=== PATIENT | male | born 1935 | race African-American/Black ===

== ENCOUNTER 2022-02-19 14:03 | Inpatient (IN) | payer OTHER ==
[~2022-02-19] VITALS: Ht 193 cm; Wt 79.2 kg
[2022-02-19 14:54] LABS: Basophils # (auto) 0 10 ^3/uL (0-0.2); Basophils % (auto) 0.9 % (0.0-2.0); Eosinophils # (auto) 0.1 10 ^3/uL (0-0.8); Hematocrit 40.1 % (41.0-53.0); Hemoglobin 13.9 g/dL (13.5-17.5); Lymphocytes # (auto) 1.2 10 ^3/uL (0.4-5.4); Lymphocytes % (auto) 29.8 % (10.0-50.0); Mean Corpuscular Hemoglobin 32.2 pg (28.0-32.0); Mean Corpuscular Hgb Conc. 34.7 g/dL (32.0-36.0); Mean Corpuscular Volume 92.6 fL (80.0-100.0); Monocytes # (auto) 0.3 10 ^3/uL (0-1.3); Neutrophils # (auto) 2.5 10 ^3/uL (1.6-8.6); Neutrophils % (auto) 60.3 % (37.0-80.0); Nucleated Red Blood Cells % 0.1 %; Red Blood Cells 4.34 10^6/uL (4.5-5.90); Red Cell Distribution Width 13.6 % (11.8-14.3); White Blood Cell 4.1 10^3/uL (4.4-10.8)
[2022-02-19 15:09] LABS: Albumin 3.2 g/dL (3.4-5.0); Calcium 8.9 mg/dL (8.5-10.1); Potassium 3.9 mmol/L (3.5-5.1)
[2022-02-19 15:12] LABS: BUN/Creatinine Ratio 8.1; Bilirubin, Total 0.7 mg/dL (0.2-1.0); Total Protein 7.2 g/dL (6.4-8.2)
[2022-02-19 15:15] LABS: INR 1.61 (0.9-1.15); Partial Thromboplastin Time 40.4 sec (23.6-33.0)
[2022-02-19] MEDS ORDERED: NITROGLYCERIN 0.4 MG SL TAB SL PRN (18:30)
[2022-02-19] MEDS ORDERED: MORPHINE SULFATE INJ 2 MG/ml SYRG IV PRN (18:30)
[2022-02-19] MEDS ORDERED: LABETALOL HCL 5 MG/ML ML 20ML VIAL IV PRN (19:15)
[2022-02-19] MEDS ORDERED: ONDANSETRON HCL 4 MG/2 ML VIAL IV PRN (19:15)
[2022-02-19] MEDS ORDERED: LACTULOSE 20Gm/30ML SOLN PO PRN ×2 (19:15)
[2022-02-19] MEDS ORDERED: ACETAMINOPHEN 500 MG TAB PO PRN (19:15)
[2022-02-19 21:34] LABS: Urine Bacteria FEW /hpf (None Seen); Urine Blood Negative /uL (Negative); Urine Mucus FEW (None Seen); Urine Specific Gravity 1.021 (1.001-1.035); Urine WBC 3 /hpf (0 - 3)
[2022-02-19] MEDS: SODIUM CHLORIDE 0.9% 1,000 ML IV SCH (21:42)
[2022-02-19] MEDS: CARVEDILOL 3.125 MG TAB PO SCH (23:33)
[2022-02-20] VITALS (16 sets, daily range): BP systolic 100–135; BP diastolic 65–93
[2022-02-20] MEDS: ATORVASTATIN 20 MG TAB PO SCH ×2 (00:41→22:01)
[2022-02-20] MEDS: ENOXAPARIN SOD 80 MG/0.8ML SYRINGE SC SCH ×3 (00:41→22:00)
[2022-02-20 05:57] LABS: Basophils # (auto) 0.1 10 ^3/uL (0-0.2); Basophils % (auto) 1.1 % (0.0-2.0); Eosinophils # (auto) 0.1 10 ^3/uL (0-0.8); Eosinophils % (auto) 2.6 % (0.0-7.0); Hematocrit 41.5 % (41.0-53.0); Hemoglobin 14.3 g/dL (13.5-17.5); Lymphocytes # (auto) 1.4 10 ^3/uL (0.4-5.4); Lymphocytes % (auto) 27.6 % (10.0-50.0); Mean Corpuscular Hemoglobin 32.2 pg (28.0-32.0); Mean Corpuscular Hgb Conc. 34.5 g/dL (32.0-36.0); Mean Corpuscular Volume 93.1 fL (80.0-100.0); Monocytes # (auto) 0.4 10 ^3/uL (0-1.3); Monocytes % (auto) 7.8 % (0.0-12.0); Neutrophils # (auto) 3.1 10 ^3/uL (1.6-8.6); Neutrophils % (auto) 60.9 % (37.0-80.0); Nucleated Red Blood Cells % 0.1 %; Red Blood Cells 4.46 10^6/uL (4.5-5.90); Red Cell Distribution Width 13.5 % (11.8-14.3); White Blood Cell 5.1 10^3/uL (4.4-10.8)
[2022-02-20 06:08] LABS: INR 1.59 (0.9-1.15); Partial Thromboplastin Time 48.9 sec (23.6-33.0)
[2022-02-20 06:09] LABS: Potassium 4.4 mmol/L (3.5-5.1)
[2022-02-20 06:22] LABS: Albumin 3.1 g/dL (3.4-5.0); BUN/Creatinine Ratio 10.7; Bilirubin, Total 0.8 mg/dL (0.2-1.0); Calcium 9.3 mg/dL (8.5-10.1)
[2022-02-20] MEDS: SODIUM CHLORIDE 0.9% 1,000 ML IV SCH (08:00)
[2022-02-20] MEDS ORDERED: NITROGLYCERIN 0.2MG/HR TOPICAL PATCH TD SCH (10:00)
[2022-02-20] MEDS: CARVEDILOL 3.125 MG TAB PO SCH ×2 (10:30→22:00)
[2022-02-20] MEDS ORDERED: ALBUTEROL SULF 2.5 MG/0.5ML(0.5%) NEB SOLN NEB PRN (12:30)
[2022-02-20] MEDS: ASPirin 81 mg TAB PO SCH (13:00)
[2022-02-20] MEDS: ALBUTEROL SULF 2.5 MG/0.5ML(0.5%) NEB SOLN NEB SCH (19:01)
[2022-02-20] MEDS: IPRATROPIUM BROM 0.5 MG/2.5ML INH SOL NEB SCH (19:01)
[2022-02-21] VITALS (14 sets, daily range): BP systolic 96–130; BP diastolic 61–80
[2022-02-21] MEDS: ALBUTEROL SULF 2.5 MG/0.5ML(0.5%) NEB SOLN NEB SCH ×4 (00:45→19:42)
[2022-02-21] MEDS: IPRATROPIUM BROM 0.5 MG/2.5ML INH SOL NEB SCH ×4 (00:46→19:42)
[2022-02-21] MEDS: CARVEDILOL 3.125 MG TAB PO SCH ×2 (10:00→21:48)
[2022-02-21] MEDS: ENOXAPARIN SOD 80 MG/0.8ML SYRINGE SC SCH ×2 (10:00→21:49)
[2022-02-21] MEDS ORDERED: AZITHROMYCIN 500MG/ 250ML 250 ML IV SCH (10:00)
[2022-02-21] MEDS: cefTRIAXone 1GM/50ML D5W 50 ML IV SCH (10:14)
[2022-02-21] MEDS: ASPirin 81 mg TAB PO SCH (10:14)
[2022-02-21] MEDS: ATORVASTATIN 20 MG TAB PO SCH (22:16)
[2022-02-22] VITALS (8 sets, daily range): BP systolic 111–143; BP diastolic 59–99
[2022-02-22] MEDS: ALBUTEROL SULF 2.5 MG/0.5ML(0.5%) NEB SOLN NEB SCH ×4 (00:14→18:53)
[2022-02-22] MEDS: IPRATROPIUM BROM 0.5 MG/2.5ML INH SOL NEB SCH ×4 (00:14→18:53)
[2022-02-22 03:06] LABS: Basophils # (auto) 0.1 10 ^3/uL (0-0.2); Basophils % (auto) 2.1 % (0.0-2.0); Eosinophils # (auto) 0.2 10 ^3/uL (0-0.8); Eosinophils % (auto) 4.9 % (0.0-7.0); Hematocrit 40.3 % (41.0-53.0); Hemoglobin 13.7 g/dL (13.5-17.5); Lymphocytes # (auto) 1.4 10 ^3/uL (0.4-5.4); Lymphocytes % (auto) 29.5 % (10.0-50.0); Mean Corpuscular Hemoglobin 31.5 pg (28.0-32.0); Mean Corpuscular Volume 92.6 fL (80.0-100.0); Monocytes # (auto) 0.4 10 ^3/uL (0-1.3); Monocytes % (auto) 7.9 % (0.0-12.0); Neutrophils # (auto) 2.6 10 ^3/uL (1.6-8.6); Neutrophils % (auto) 55.6 % (37.0-80.0); Nucleated Red Blood Cells % 0.2 %; Red Blood Cells 4.36 10^6/uL (4.5-5.90); Red Cell Distribution Width 13.5 % (11.8-14.3); White Blood Cell 4.7 10^3/uL (4.4-10.8)
[2022-02-22 03:24] LABS: BUN/Creatinine Ratio 10.9; Calcium 8.7 mg/dL (8.5-10.1); Potassium 3.7 mmol/L (3.5-5.1)
[2022-02-22 03:27] LABS: Bilirubin, Total 0.6 mg/dL (0.2-1.0); Total Protein 6.6 g/dL (6.4-8.2)
[2022-02-22 09:09] LABS: INR 1.42 (0.9-1.15)
[2022-02-22] MEDS: cefTRIAXone 1GM/50ML D5W 50 ML IV SCH (09:13)
[2022-02-22] MEDS: ASPirin 81 mg TAB PO SCH (10:00)
[2022-02-22] MEDS: ENOXAPARIN SOD 80 MG/0.8ML SYRINGE SC SCH ×2 (10:00→21:54)
[2022-02-22] MEDS: CARVEDILOL 3.125 MG TAB PO SCH ×2 (10:00→21:54)
[2022-02-22] MEDS ORDERED: LIDOCAINE 2%HCL (LOCAL ANESTH.) INJ 10ml MDV ONE (16:28)
[2022-02-22] MEDS ORDERED: fentaNYL CITRATE 100 MCG/2 ML VL ONE (16:32)
[2022-02-22] MEDS ORDERED: ANGIOMAX 250 MG VIAL IV ONE (16:32)
[2022-02-22] MEDS ORDERED: SODIUM CHL 0.9% 0 ML ONE (16:32)
[2022-02-22] MEDS ORDERED: MIDAZOLAM HCL 2MG/2ML 2ml VIAL (1mg/ml) ONE (16:32)
[2022-02-22] MEDS ORDERED: IOHEXOL 350 MG/ML 100ML IJ ONE (16:33)
[2022-02-22] MEDS: ATORVASTATIN 20 MG TAB PO SCH (21:53)
[2022-02-23] VITALS (16 sets, daily range): BP systolic 102–134; BP diastolic 63–87
[2022-02-23 04:45] LABS: Basophils # (auto) 0.1 10 ^3/uL (0-0.2); Basophils % (auto) 1.2 % (0.0-2.0); Eosinophils # (auto) 0.3 10 ^3/uL (0-0.8); Hematocrit 40.2 % (41.0-53.0); Hemoglobin 13.7 g/dL (13.5-17.5); Lymphocytes # (auto) 1.2 10 ^3/uL (0.4-5.4); Lymphocytes % (auto) 28.9 % (10.0-50.0); Mean Corpuscular Hemoglobin 31.4 pg (28.0-32.0); Mean Corpuscular Volume 92.2 fL (80.0-100.0); Monocytes # (auto) 0.4 10 ^3/uL (0-1.3); Monocytes % (auto) 8.9 % (0.0-12.0); Neutrophils # (auto) 2.3 10 ^3/uL (1.6-8.6); Nucleated Red Blood Cells % 0.2 %; Red Blood Cells 4.36 10^6/uL (4.5-5.90); Red Cell Distribution Width 13.8 % (11.8-14.3); White Blood Cell 4.3 10^3/uL (4.4-10.8)
[2022-02-23 05:04] LABS: BUN/Creatinine Ratio 10.5; Calcium 8.7 mg/dL (8.5-10.1); Magnesium 2.1 mg/dL (1.6-2.6); Potassium 3.9 mmol/L (3.5-5.1)
[2022-02-23] MEDS: ALBUTEROL SULF 2.5 MG/0.5ML(0.5%) NEB SOLN NEB SCH ×5 (06:32→18:17)
[2022-02-23] MEDS: IPRATROPIUM BROM 0.5 MG/2.5ML INH SOL NEB SCH ×5 (06:32→18:17)
[2022-02-23] MEDS: cefTRIAXone 1GM/50ML D5W 50 ML IV SCH (08:08)
[2022-02-23] MEDS: CARVEDILOL 3.125 MG TAB PO SCH (09:18)
[2022-02-23] MEDS: ASPirin 81 mg TAB PO SCH (09:18)
[2022-02-23] MEDS: ENOXAPARIN SOD 80 MG/0.8ML SYRINGE SC SCH (09:18)
== END 2022-02-23 18:30 | disposition left against medical advice (07) | DRG 280 ==
LOC: EDBD 14:03 → ER 14:03 → OVERFLOW 18:28 → DOU IN ICU 18:29
PROVIDERS: ADMIT Internal Medicine; ATTEND Internal Medicine
PROC: 4A023N7 Measurement of Cardiac Sampling and Pressure, Left Heart, Percutaneous Approach (ICD-10-PCS; principal; 2022-02-22)
PROC: B2111ZZ Fluoroscopy of Multiple Coronary Arteries using Low Osmolar Contrast (ICD-10-PCS; 2022-02-22)
PROC: B2151ZZ Fluoroscopy of Left Heart using Low Osmolar Contrast (ICD-10-PCS; 2022-02-22)
PROC: B41C1ZZ Fluoroscopy of Pelvic Arteries using Low Osmolar Contrast (ICD-10-PCS; 2022-02-22)
DX: I21.4 Non-ST elevation (NSTEMI) myocardial infarction (principal); N17.0 Acute kidney failure with tubular necrosis; I50.43 Acute on chronic combined systolic (congestive) and diastolic (congestive) heart failure; E44.0 Moderate protein-calorie malnutrition; D68.9 Coagulation defect, unspecified; I42.2 Other hypertrophic cardiomyopathy; I95.9 Hypotension, unspecified; I48.91 Unspecified atrial fibrillation; Z53.29 Procedure and treatment not carried out because of patient's decision for other reasons; Z68.21 Body mass index [BMI] 21.0-21.9, adult; I25.10 Atherosclerotic heart disease of native coronary artery without angina pectoris; R55 Syncope and collapse; I49.5 Sick sinus syndrome; E88.09 Other disorders of plasma-protein metabolism, not elsewhere classified; D72.819 Decreased white blood cell count, unspecified; Z20.822 Contact with and (suspected) exposure to COVID-19
CPT/HCPCS: 36415; 70450; 71045; 75736; 80048; 80053; 80061; 81001; 82550; 83735; 83880; 84443; 84484; 85025; 85610; 85730; 86141; 86850; 86900; 86901; 87081; 93005; 93306; 93458; 93886; 94640; 96361; 96365; 99152; 99291; G0378; J0696; J2001; J2250

== ENCOUNTER 2022-07-05 16:27 | Inpatient (IN) | payer OTHER ==
[~2022-07-05] VITALS: Ht 193 cm; Wt 90.0 kg
[2022-07-05] MEDS ORDERED: cefTRIAXone 1GM/50ML D5W 50 ML IV ONE (17:00)
[2022-07-05] MEDS ORDERED: methylPREDNISolone SOD SUCC 125 MG/2 ML VL IV ONE (17:00)
[2022-07-05 18:08] LABS: Basophils # (auto) 0 10 ^3/uL (0-0.2); Basophils % (auto) 0.4 % (0.0-2.0); Eosinophils # (auto) 0.1 10 ^3/uL (0-0.8); Eosinophils % (auto) 2.8 % (0.0-7.0); Hematocrit 25.2 % (41.0-53.0); Hemoglobin 8.1 g/dL (13.5-17.5); Lymphocytes % (auto) 19.4 % (10.0-50.0); Mean Corpuscular Hgb Conc. 32.1 g/dL (32.0-36.0); Mean Corpuscular Volume 84.3 fL (80.0-100.0); Monocytes # (auto) 0.4 10 ^3/uL (0-1.3); Monocytes % (auto) 6.8 % (0.0-12.0); Neutrophils # (auto) 3.7 10 ^3/uL (1.6-8.6); Neutrophils % (auto) 70.6 % (37.0-80.0); Nucleated Red Blood Cells % 0.2 %; Red Blood Cells 2.99 10^6/uL (4.5-5.90); Red Cell Distribution Width 18.2 % (11.8-14.3); White Blood Cell 5.3 10^3/uL (4.4-10.8)
[2022-07-05 18:23] LABS: Albumin 2.8 g/dL (3.4-5.0); BUN/Creatinine Ratio 7.4; Calcium 8.6 mg/dL (8.5-10.1); Magnesium 2.1 mg/dL (1.6-2.6); Potassium 4.2 mmol/L (3.5-5.1)
[2022-07-05 18:25] LABS: Bilirubin, Total 0.3 mg/dL (0.2-1.0); Total Protein 6.6 g/dL (6.4-8.2)
[2022-07-05] MEDS ORDERED: LORazepam 2MG/ML-1ML VIAL IV ONE (19:00)
[2022-07-05] MEDS ORDERED: ALBUTEROL SULF 2.5 MG/0.5ML(0.5%) NEB SOLN NEB PRN (21:15)
[2022-07-05] MEDS ORDERED: ACETAMINOPHEN 325 MG TAB PO PRN (21:15)
[2022-07-05] MEDS ORDERED: MORPHINE SULFATE INJ 2 MG/ml SYRG IV PRN (21:15)
[2022-07-05] MEDS ORDERED: NITROGLYCERIN 0.4 MG SL TAB SL PRN (21:15)
[2022-07-05] MEDS ORDERED: TEMAZEPAM 15 MG CAP PO PRN (21:15)
[2022-07-05] MEDS ORDERED: ONDANSETRON HCL 4 MG/2 ML VIAL IV PRN (21:15)
[2022-07-05 22:25] VITALS: BP 123/76
[2022-07-05] MEDS: ATORVASTATIN 20 MG TAB PO SCH (23:17)
[2022-07-05] MEDS: CARVEDILOL 3.125 MG TAB PO SCH (23:19)
[2022-07-05] MEDS ORDERED: CHOL20007 PO (23:37)
[2022-07-05] MEDS ORDERED: DONETAB6 PO (23:37)
[2022-07-05] MEDS ORDERED: DABI150C5 PO (23:37)
[2022-07-05] MEDS ORDERED: AMLO-489 PO (23:37)
[2022-07-05] MEDS ORDERED: TAMS1CAP25 PO (23:37)
[2022-07-05] MEDS ORDERED: LEVO25TA6 PO (23:37)
[2022-07-06 06:48] LABS: Basophils # (auto) 0 10 ^3/uL (0-0.2); Eosinophils # (auto) 0 10 ^3/uL (0-0.8); Hemoglobin 8.2 g/dL (13.5-17.5); Lymphocytes # (auto) 0.4 10 ^3/uL (0.4-5.4); Monocytes # (auto) 0.1 10 ^3/uL (0-1.3)
[2022-07-06 06:52] LABS: Basophils % (auto) 0.2 % (0.0-2.0); Hematocrit 25.1 % (41.0-53.0); Lymphocytes % (auto) 12.7 % (10.0-50.0); Mean Corpuscular Hgb Conc. 32.5 g/dL (32.0-36.0); Mean Corpuscular Volume 83.2 fL (80.0-100.0); Monocytes % (auto) 1.7 % (0.0-12.0); Neutrophils # (auto) 2.9 10 ^3/uL (1.6-8.6); Neutrophils % (auto) 85.4 % (37.0-80.0); Nucleated Red Blood Cells % 0.3 %; Red Blood Cells 3.02 10^6/uL (4.5-5.90); Red Cell Distribution Width 18.2 % (11.8-14.3); White Blood Cell 3.4 10^3/uL (4.4-10.8)
[2022-07-06] MEDS: LEVOTHYROXINE SODIUM 25 MCG TAB PO SCH (07:03)
[2022-07-06 07:04] LABS: Calcium 8.9 mg/dL (8.5-10.1); Potassium 4.9 mmol/L (3.5-5.1)
[2022-07-06 07:08] LABS: BUN/Creatinine Ratio 9.6
[2022-07-06 07:28] LABS: Hematocrit 24.8 % (41.0-53.0); Hemoglobin 8.1 g/dL (13.5-17.5)
[2022-07-06 07:41] LABS: INR 1.61 (0.9-1.15); Partial Thromboplastin Time 54.7 sec (24.6-33.4)
[2022-07-06] MEDS ORDERED: ENOXAPARIN SOD 40 MG/0.4 ML SYRINGE SC SCH (10:00)
[2022-07-06] MEDS ORDERED: ASPirin 81 mg TAB PO SCH (10:00)
[2022-07-06] MEDS: CARVEDILOL 3.125 MG TAB PO SCH ×2 (10:38→22:13)
[2022-07-06] MEDS: PANTOPRAZOLE 40 MG TAB PO SCH (10:39)
[2022-07-06] MEDS: amLODIPine BESYLATE 5 MG TAB PO SCH (10:39)
[2022-07-06] MEDS: DABIGATRAN 75 MG CAP PO SCH ×2 (10:40→22:25)
[2022-07-06 16:23] LABS: Urine Bacteria NONE SEEN /hpf (None Seen); Urine WBC 15 /hpf (0 - 3)
[2022-07-06 16:35] LABS: Urine Blood TRACE /uL (Negative)
[2022-07-06 17:50] VITALS: BP 116/67
[2022-07-06 20:24] LABS: % Iron Saturation 2.4 % (20-55)
[2022-07-06 20:33] LABS: Ferritin 26.3 ng/mL (10-322)
[2022-07-06 22:00] VITALS: BP 113/77
[2022-07-06] MEDS ORDERED: DONEPEZIL HYDROCHLORIDE 5 MG TAB PO SCH (22:00)
[2022-07-06] MEDS: ATORVASTATIN 20 MG TAB PO SCH (22:13)
[2022-07-07 05:00] VITALS: BP 116/76
[2022-07-07] MEDS: LEVOTHYROXINE SODIUM 25 MCG TAB PO SCH (06:48)
[2022-07-07 08:00] VITALS: BP 118/76
[2022-07-07 09:00] VITALS: BP 118/76
[2022-07-07] MEDS: amLODIPine BESYLATE 5 MG TAB PO SCH (09:20)
[2022-07-07] MEDS: PANTOPRAZOLE 40 MG TAB PO SCH (09:20)
[2022-07-07] MEDS: DABIGATRAN 75 MG CAP PO SCH (09:20)
[2022-07-07] MEDS: CARVEDILOL 3.125 MG TAB PO SCH (09:20)
[2022-07-07] MEDS ORDERED: ASPirin 81 mg TAB PO SCH (10:00)
[2022-07-07 13:00] VITALS: BP 106/65
[2022-07-07 16:01] VITALS: BP 106/65
[2022-07-07] MEDS ORDERED: FER325T PO (16:19)
[2022-07-07] MEDS ORDERED: PANT40T PO (16:19)
[2022-07-07 16:36] VITALS: BP 91/64
[2022-07-07] MEDS ORDERED: FERROUS SULFATE 325mg EC TAB PO SCH (18:00)
[2022-07-08 07:07] LABS: Immunoglobulin G, Serum 1461 mg/dL (603-1613)
== END 2022-07-07 18:01 | disposition home or self-care (01) | DRG 812 ==
LOC: ER 16:27 → TELE 21:17 → TELE-WESTW 07-06 17:38
PROVIDERS: ADMIT Nurse Practitioner; ATTEND Student in an Organized Health Care Education/Training Program
DX: D50.9 Iron deficiency anemia, unspecified (principal); E44.0 Moderate protein-calorie malnutrition; I13.0 Hypertensive heart and chronic kidney disease with heart failure and stage 1 through stage 4 chronic kidney disease, or unspecified chronic kidney disease; C90.00 Multiple myeloma not having achieved remission; K92.2 Gastrointestinal hemorrhage, unspecified; I24.8 Other forms of acute ischemic heart disease; R07.89 Other chest pain; F03.90 Unspecified dementia, unspecified severity, without behavioral disturbance, psychotic disturbance, mood disturbance, and anxiety; Z20.822 Contact with and (suspected) exposure to COVID-19; E03.9 Hypothyroidism, unspecified; N18.31 Chronic kidney disease, stage 3a; F03.A0 Unspecified dementia, mild, without behavioral disturbance, psychotic disturbance, mood disturbance, and anxiety; I48.91 Unspecified atrial fibrillation; I50.9 Heart failure, unspecified; Z79.01 Long term (current) use of anticoagulants; Z95.0 Presence of cardiac pacemaker; Z82.49 Family history of ischemic heart disease and other diseases of the circulatory system; Z68.24 Body mass index [BMI] 24.0-24.9, adult; R06.6 Hiccough
CPT/HCPCS: 36415; 71045; 80048; 80053; 81001; 82607; 82728; 82784; 83036; 83540; 83550; 83605; 83735; 83880; 84155; 84156; 84165; 84166; 84484; 85014; 85018; 85025; 85379; 85610; 85730; 86334; 86850; 86900; 86901; 87040; 87426; 93005; G0378; J0696

== ENCOUNTER 2022-08-05 13:01 | Inpatient (IN) | payer OTHER ==
[~2022-08-05] VITALS: Ht 193 cm; Wt 77.6 kg
[~2022-08-05 13:01] MED LIST: AMLO-489 PO; CHOL20007 PO; DABI150C5 PO; DONETAB6 PO; FER325T PO; LEVO25TA6 PO; PANT40T PO; TAMS1CAP25 PO
[2022-08-05 14:40] LABS: Basophils # (auto) 0.1 10 ^3/uL (0-0.2); Basophils % (auto) 1.4 % (0.0-2.0); Eosinophils # (auto) 0.2 10 ^3/uL (0-0.8); Eosinophils % (auto) 4.3 % (0.0-7.0); Hemoglobin 10.7 g/dL (13.5-17.5); Lymphocytes % (auto) 25.6 % (10.0-50.0); Mean Corpuscular Hemoglobin 26.3 pg (28.0-32.0); Mean Corpuscular Hgb Conc. 30.6 g/dL (32.0-36.0); Monocytes # (auto) 0.3 10 ^3/uL (0-1.3); Monocytes % (auto) 6.6 % (0.0-12.0); Neutrophils # (auto) 2.4 10 ^3/uL (1.6-8.6); Neutrophils % (auto) 62.1 % (37.0-80.0); Nucleated Red Blood Cells % 0.1 %; Red Blood Cells 4.07 10^6/uL (4.5-5.90); Red Cell Distribution Width 22.2 % (11.8-14.3); White Blood Cell 3.8 10^3/uL (4.4-10.8)
[2022-08-05 14:55] LABS: Albumin 3.2 g/dL (3.4-5.0); Calcium 9.1 mg/dL (8.5-10.1); Potassium 4.2 mmol/L (3.5-5.1)
[2022-08-05 14:57] LABS: Bilirubin, Total 0.4 mg/dL (0.2-1.0); Total Protein 6.5 g/dL (6.4-8.2)
[2022-08-05 16:17] LABS: Urine Bacteria None Seen /hpf (None Seen)
[2022-08-05 17:22] LABS: Urine Blood 3+ /uL (Negative)
[2022-08-05] MEDS ORDERED: SODIUM CHLORIDE 0.9% 1,000 ML IV SCH (21:00)
[2022-08-05] MEDS ORDERED: PANTOPRAZOLE 40 MG/10 ML VIAL INJ IV ONE (21:00)
[2022-08-05] MEDS ORDERED: ACETAMINOPHEN 325 MG TAB PO PRN (21:00)
[2022-08-06 03:25] LABS: Basophils # (auto) 0.1 10 ^3/uL (0-0.2); Eosinophils # (auto) 0.2 10 ^3/uL (0-0.8); Hemoglobin 10.9 g/dL (13.5-17.5); Lymphocytes # (auto) 1.8 10 ^3/uL (0.4-5.4); Monocytes # (auto) 0.5 10 ^3/uL (0-1.3); Neutrophils # (auto) 3.1 10 ^3/uL (1.6-8.6)
[2022-08-06 03:29] LABS: Basophils % (auto) 1.2 % (0.0-2.0); Eosinophils % (auto) 2.9 % (0.0-7.0); Hematocrit 36.2 % (41.0-53.0); Mean Corpuscular Hemoglobin 25.9 pg (28.0-32.0); Mean Corpuscular Volume 86.2 fL (80.0-100.0); Monocytes % (auto) 8.1 % (0.0-12.0); Neutrophils % (auto) 55.8 % (37.0-80.0); Nucleated Red Blood Cells % 0.2 %; White Blood Cell 5.6 10^3/uL (4.4-10.8)
[2022-08-06 03:32] LABS: Potassium 4.4 mmol/L (3.5-5.1)
[2022-08-06 03:41] LABS: Albumin 3.3 g/dL (3.4-5.0); BUN/Creatinine Ratio 9.7; Bilirubin, Total 0.6 mg/dL (0.2-1.0); Calcium 9.3 mg/dL (8.5-10.1); Total Protein 7.2 g/dL (6.4-8.2)
[2022-08-06 03:42] LABS: Red Cell Distribution Width 22.5 % (11.8-14.3)
[2022-08-06 09:46] VITALS: BP 128/84
[2022-08-06] MEDS ORDERED: ENOXAPARIN SOD 40 MG/0.4 ML SYRINGE SC SCH (10:00)
[2022-08-06] MEDS ORDERED: PANTOPRAZOLE 40 MG/10 ML VIAL INJ IV SCH (10:00)
== END 2022-08-06 11:14 | disposition left against medical advice (07) | DRG 696 ==
LOC: ER 13:01 → OVERFLOW 21:00
PROVIDERS: ADMIT Nurse Practitioner Family; ATTEND Nurse Practitioner Family
DX: R31.9 Hematuria, unspecified (principal); E46 Unspecified protein-calorie malnutrition; D64.9 Anemia, unspecified; N17.9 Acute kidney failure, unspecified; I48.91 Unspecified atrial fibrillation; N40.0 Benign prostatic hyperplasia without lower urinary tract symptoms; Z68.20 Body mass index [BMI] 20.0-20.9, adult; I10 Essential (primary) hypertension; Z53.29 Procedure and treatment not carried out because of patient's decision for other reasons; Z87.442 Personal history of urinary calculi; Z20.822 Contact with and (suspected) exposure to COVID-19
CPT/HCPCS: 36415; 74176; 80053; 81001; 84154; 85025; 87426; G0378

== ENCOUNTER 2022-09-16 11:14 | Inpatient (IN) | payer OTHER ==
[~2022-09-16] VITALS: Ht 193 cm; Wt 87.1 kg
[2022-09-16] MEDS ORDERED: ONDANSETRON HCL 4 MG/2 ML VIAL IV ONE (11:30)
[2022-09-16] MEDS ORDERED: MORPHINE SULFATE 4 MG/ML SYR/VIAL IV ONE (11:30)
[2022-09-16 12:07] LABS: Basophils # (auto) 0 10 ^3/uL (0-0.2); Basophils % (auto) 0.5 % (0.0-2.0); Eosinophils # (auto) 0.1 10 ^3/uL (0-0.8); Eosinophils % (auto) 0.9 % (0.0-7.0); Hemoglobin 10.9 g/dL (13.5-17.5); Lymphocytes # (auto) 0.8 10 ^3/uL (0.4-5.4); Lymphocytes % (auto) 10.4 % (10.0-50.0); Mean Corpuscular Hemoglobin 26.5 pg (28.0-32.0); Mean Corpuscular Hgb Conc. 31.9 g/dL (32.0-36.0); Mean Corpuscular Volume 82.9 fL (80.0-100.0); Monocytes # (auto) 0.6 10 ^3/uL (0-1.3); Monocytes % (auto) 8.2 % (0.0-12.0); Neutrophils # (auto) 6.3 10 ^3/uL (1.6-8.6); Red Cell Distribution Width 20.3 % (11.8-14.3); White Blood Cell 7.8 10^3/uL (4.4-10.8)
[2022-09-16 12:18] LABS: Albumin 2.4 g/dL (3.4-5.0); Calcium 8.6 mg/dL (8.5-10.1); Potassium 4.3 mmol/L (3.5-5.1)
[2022-09-16 12:23] LABS: BUN/Creatinine Ratio 9.2; Bilirubin, Total 0.4 mg/dL (0.2-1.0); Total Protein 6.7 g/dL (6.4-8.2)
[2022-09-16] MEDS ORDERED: ONDANSETRON HCL 4 MG/2 ML VIAL IV PRN (16:30)
[2022-09-16] MEDS ORDERED: MORPHINE SULFATE INJ 2 MG/ml SYRG IV PRN (16:30)
[2022-09-16 16:44] LABS: Urine Bacteria FEW /hpf (None Seen); Urine Blood 3+ /uL (Negative); Urine Specific Gravity 1.018 (1.001-1.035); Urine WBC 188 /hpf (0 - 3); Urine WBC Clumps PRESENT /hpf (None Seen)
[2022-09-16] MEDS: SODIUM CHLORIDE 0.9% 1,000 ML IV SCH (21:32)
[2022-09-16] MEDS: FERROUS SULFATE 325mg EC TAB PO SCH (21:33)
[2022-09-16] MEDS: TAMSULOSIN HYDROCHLORIDE 0.4 MG CAP PO SCH (21:33)
[2022-09-17 04:44] LABS: Basophils # (auto) 0 10 ^3/uL (0-0.2); Eosinophils # (auto) 0 10 ^3/uL (0-0.8); Eosinophils % (auto) 0.2 % (0.0-7.0); Hemoglobin 10.1 g/dL (13.5-17.5); Lymphocytes # (auto) 0.8 10 ^3/uL (0.4-5.4); Mean Corpuscular Hemoglobin 25.9 pg (28.0-32.0)
[2022-09-17 04:46] LABS: Basophils % (auto) 0.2 % (0.0-2.0); Hematocrit 32.7 % (41.0-53.0); Lymphocytes % (auto) 6.7 % (10.0-50.0); Mean Corpuscular Hgb Conc. 30.9 g/dL (32.0-36.0); Mean Corpuscular Volume 83.8 fL (80.0-100.0); Monocytes # (auto) 0.8 10 ^3/uL (0-1.3); Monocytes % (auto) 7.1 % (0.0-12.0); Neutrophils # (auto) 9.9 10 ^3/uL (1.6-8.6); Neutrophils % (auto) 85.8 % (37.0-80.0); Nucleated Red Blood Cells % 0.1 %; White Blood Cell 11.6 10^3/uL (4.4-10.8)
[2022-09-17 04:57] LABS: Red Cell Distribution Width 20.3 % (11.8-14.3)
[2022-09-17 05:02] LABS: Potassium 4.1 mmol/L (3.5-5.1)
[2022-09-17 05:06] LABS: Albumin 2.1 g/dL (3.4-5.0); BUN/Creatinine Ratio 9.2
[2022-09-17 05:18] LABS: Bilirubin, Total 0.3 mg/dL (0.2-1.0); Calcium 8.7 mg/dL (8.5-10.1); Total Protein 6.3 g/dL (6.4-8.2)
[2022-09-17] MEDS: SODIUM CHLORIDE 0.9% 1,000 ML IV SCH ×2 (06:43→13:28)
[2022-09-17] MEDS: LEVOTHYROXINE SODIUM 25 MCG TAB PO SCH (06:43)
[2022-09-17] MEDS: FERROUS SULFATE 325mg EC TAB PO SCH ×2 (09:26→18:51)
[2022-09-17] MEDS ORDERED: PANTOPRAZOLE 40 MG TAB PO SCH (10:00)
[2022-09-17] MEDS: PANTOPRAZOLE 40 MG/10 ML VIAL INJ IV SCH (10:36)
[2022-09-17] MEDS: levoFLOXacin 500MG 100 ML IV SCH (10:36)
[2022-09-17] MEDS: CHOLECALCIFEROL (VITD3) 2,000 UNIT CAP/TAB PO SCH (10:42)
[2022-09-17] MEDS: POLYETHYLENE GLYCOL 17 GM PWDR PO SCH (10:44)
[2022-09-17] MEDS: amLODIPine BESYLATE 5 MG TAB PO SCH (10:44)
[2022-09-17] MEDS: DOXYCYCLINE 100MG/250ML 250 ML IV SCH (13:20)
[2022-09-17 18:22] VITALS: BP 136/88
[2022-09-17] MEDS ORDERED: FINA5TAB4 PO (18:41)
[2022-09-17 22:00] VITALS: BP 110/69
[2022-09-17] MEDS: TAMSULOSIN HYDROCHLORIDE 0.4 MG CAP PO SCH (23:25)
[2022-09-18] MEDS: DOXYCYCLINE 100MG/250ML 250 ML IV SCH ×2 (01:37→12:47)
[2022-09-18] MEDS: SODIUM CHLORIDE 0.9% 1,000 ML IV SCH ×4 (01:38→21:56)
[2022-09-18 05:00] VITALS: BP 106/58
[2022-09-18] MEDS: LEVOTHYROXINE SODIUM 25 MCG TAB PO SCH (06:41)
[2022-09-18 09:00] VITALS: BP 114/72
[2022-09-18] MEDS: FERROUS SULFATE 325mg EC TAB PO SCH ×2 (10:33→18:22)
[2022-09-18] MEDS: amLODIPine BESYLATE 5 MG TAB PO SCH (10:34)
[2022-09-18] MEDS: PANTOPRAZOLE 40 MG/10 ML VIAL INJ IV SCH (10:34)
[2022-09-18] MEDS: CHOLECALCIFEROL (VITD3) 2,000 UNIT CAP/TAB PO SCH (10:34)
[2022-09-18] MEDS: POLYETHYLENE GLYCOL 17 GM PWDR PO SCH (10:34)
[2022-09-18] MEDS: levoFLOXacin 500MG 100 ML IV SCH (10:34)
[2022-09-18 13:00] VITALS: BP 102/57
[2022-09-18 16:55] VITALS: BP 96/56
[2022-09-18] MEDS: TAMSULOSIN HYDROCHLORIDE 0.4 MG CAP PO SCH (21:54)
[2022-09-18 21:58] VITALS: BP 98/56
[2022-09-19] MEDS: DOXYCYCLINE 100MG/250ML 250 ML IV SCH ×3 (00:38→23:54)
[2022-09-19] MEDS: SODIUM CHLORIDE 0.9% 1,000 ML IV SCH ×3 (04:45→20:24)
[2022-09-19 05:00] VITALS: BP 100/61
[2022-09-19] MEDS: LEVOTHYROXINE SODIUM 25 MCG TAB PO SCH (06:09)
[2022-09-19] MEDS: FERROUS SULFATE 325mg EC TAB PO SCH ×2 (08:15→18:21)
[2022-09-19] MEDS: CEFEPIME 1GM/ 50ML 50 ML IV SCH ×2 (08:55→16:56)
[2022-09-19] MEDS: PANTOPRAZOLE 40 MG/10 ML VIAL INJ IV SCH (08:56)
[2022-09-19] MEDS: POLYETHYLENE GLYCOL 17 GM PWDR PO SCH (08:57)
[2022-09-19] MEDS: CHOLECALCIFEROL (VITD3) 2,000 UNIT CAP/TAB PO SCH (08:57)
[2022-09-19 09:00] VITALS: BP 108/66
[2022-09-19] MEDS: amLODIPine BESYLATE 5 MG TAB PO SCH (09:18)
[2022-09-19 13:00] VITALS: BP 94/54
[2022-09-19 17:00] VITALS: BP 98/68
[2022-09-19] MEDS: TAMSULOSIN HYDROCHLORIDE 0.4 MG CAP PO SCH (21:38)
[2022-09-19 22:00] VITALS: BP 105/58
[2022-09-20] MEDS: CEFEPIME 1GM/ 50ML 50 ML IV SCH ×2 (01:55→09:46)
[2022-09-20] MEDS: SODIUM CHLORIDE 0.9% 1,000 ML IV SCH (04:45)
[2022-09-20 05:00] VITALS: BP 122/65
[2022-09-20] MEDS: LEVOTHYROXINE SODIUM 25 MCG TAB PO SCH (06:23)
[2022-09-20 08:00] VITALS: BP 108/67
[2022-09-20] MEDS ORDERED: DOXY-286 PO (09:03)
[2022-09-20] MEDS ORDERED: CIPR-173 PO (09:03)
[2022-09-20] MEDS: POLYETHYLENE GLYCOL 17 GM PWDR PO SCH (09:45)
[2022-09-20] MEDS: PANTOPRAZOLE 40 MG/10 ML VIAL INJ IV SCH (09:45)
[2022-09-20] MEDS: FERROUS SULFATE 325mg EC TAB PO SCH (09:46)
[2022-09-20] MEDS: amLODIPine BESYLATE 5 MG TAB PO SCH (09:47)
[2022-09-20] MEDS: CHOLECALCIFEROL (VITD3) 2,000 UNIT CAP/TAB PO SCH (10:45)
[2022-09-20 10:46] VITALS: BP 108/67
== END 2022-09-20 13:00 | disposition home or self-care (01) | DRG 871 ==
LOC: EDBD 11:14 → ER 11:14 → OVERFLOW 16:40 → CENTRAL 09-17 16:32
PROVIDERS: ADMIT Nurse Practitioner Family; ATTEND Family Medicine
DX: A41.9 Sepsis, unspecified organism (principal); E43 Unspecified severe protein-calorie malnutrition; J15.9 Unspecified bacterial pneumonia; K85.90 Acute pancreatitis without necrosis or infection, unspecified; J69.0 Pneumonitis due to inhalation of food and vomit; N30.01 Acute cystitis with hematuria; I13.0 Hypertensive heart and chronic kidney disease with heart failure and stage 1 through stage 4 chronic kidney disease, or unspecified chronic kidney disease; B96.5 Pseudomonas (aeruginosa) (mallei) (pseudomallei) as the cause of diseases classified elsewhere; E86.0 Dehydration; N45.3 Epididymo-orchitis; D63.8 Anemia in other chronic diseases classified elsewhere; E03.9 Hypothyroidism, unspecified; I48.91 Unspecified atrial fibrillation; I71.21 Aneurysm of the ascending aorta, without rupture; K59.00 Constipation, unspecified; F03.90 Unspecified dementia, unspecified severity, without behavioral disturbance, psychotic disturbance, mood disturbance, and anxiety; I25.10 Atherosclerotic heart disease of native coronary artery without angina pectoris; I50.9 Heart failure, unspecified; N50.819 Testicular pain, unspecified; N43.3 Hydrocele, unspecified; N18.30 Chronic kidney disease, stage 3 unspecified; N40.0 Benign prostatic hyperplasia without lower urinary tract symptoms; Z68.21 Body mass index [BMI] 21.0-21.9, adult; Z87.442 Personal history of urinary calculi; Z95.0 Presence of cardiac pacemaker
CPT/HCPCS: 36415; 74176; 76870; 80053; 81001; 83605; 83690; 85025; 87040; 87086; 87088; 87186; 87426; 87804; 93005; 96360; C9113; G0378; J1956; J3490

== ENCOUNTER 2023-11-09 13:39 | Inpatient (IN) | payer OTHER, MEDICAID ==
[~2023-11-09] VITALS: Ht 193 cm; Wt 85.5 kg
[~2023-11-09 13:39] MED LIST changes: -AMLO-489 PO; +AMLO1TAB22 PO; +CIPR-173 PO; +DOXY-286 PO; +FINA5TAB4 PO
[2023-11-09 14:20] VITALS: PULSE 65; RESP 14; O2SAT 93
[2023-11-09] MEDS: SODIUM CHLORIDE 0.9% 500 ML IV ONE (14:27)
[2023-11-09 14:30] LABS: Basophils # (auto) 0 10 ^3/uL (0-0.2); Basophils % (auto) 0.1 % (0.0-2.0); Eosinophils # (auto) 0 10 ^3/uL (0-0.8); Hemoglobin 13.9 g/dL (13.5-17.5); Lymphocytes # (auto) 0.3 10 ^3/uL (0.4-5.4); Lymphocytes % (auto) 2.6 % (10.0-50.0); Mean Corpuscular Hemoglobin 31.1 pg (28.0-32.0); Mean Corpuscular Hgb Conc. 33.2 g/dL (32.0-36.0); Mean Corpuscular Volume 93.7 fL (80.0-100.0); Monocytes # (auto) 0.6 10 ^3/uL (0-1.3); Monocytes % (auto) 4.6 % (0.0-12.0); Neutrophils # (auto) 11.4 10 ^3/uL (1.6-8.6); Neutrophils % (auto) 92.7 % (37.0-80.0); Red Blood Cells 4.48 10^6/uL (4.5-5.90); Red Cell Distribution Width 15.1 % (11.8-14.3); White Blood Cell 12.3 10^3/uL (4.4-10.8)
[2023-11-09 14:48] LABS: Alanine Aminotransferase 13 U/L (7-40); Albumin 3.4 g/dL (3.2-4.8); Alkaline Phosphatase 47 U/L (46-116); Anion Gap 7 (5-15); Aspartate Aminotransferase 22 U/L (13-40); BUN/Creatinine Ratio 10.8 (10.0-20.0); Blood Urea Nitrogen 14 mg/dL (9-23); Calcium 9.3 mg/dL (8.7-10.4); Carbon Dioxide 21 mmol/L (20-30); Chloride 110 mmol/L (98-107); Glucose 114 mg/dL (74-106); Magnesium 1.7 mg/dL (1.6-2.6); Sodium 138 mmol/L (136-145)
[2023-11-09 14:49] LABS: Bilirubin, Total 1.4 mg/dL (0.2-1.0); Total Protein 6.3 g/dL (5.7-8.2)
[2023-11-09 17:28] LABS: Urine Bacteria MOD /hpf (None Seen); Urine Blood 2+ /uL (Negative); Urine Clarity HAZY (Clear); Urine Color Yellow (Yellow); Urine Hyaline Cast MOD /lpf (0 - 2); Urine Mucus MODERATE (None Seen); Urine Protein, UAD 2+ (Negative); Urine Specific Gravity 1.027 (1.001-1.035); Urine Urobilinogen Normal (Negative); Urine WBC 70 /hpf (0 - 3); Urine pH 5.5 (5.0-8.0)
[2023-11-09] MEDS ORDERED: MORPHINE SULFATE INJ 2 MG/ml SYRG IV PRN (18:45)
[2023-11-09] MEDS ORDERED: NITROGLYCERIN 0.4 MG SL TAB SL PRN (18:45)
[2023-11-09 19:30] VITALS: PULSE 65; RESP 12; O2SAT 96
[2023-11-09] MEDS: cefTRIAXone 1GM/50ML D5W 50 ML IV ONE (20:34)
[2023-11-09] MEDS: SODIUM CHLORIDE 0.9% 1,000 ML IV SCH (20:35)
[2023-11-09 22:00] VITALS: BP 113/75; PULSE 65; RESP 18; TEMP 98.2; O2SAT 98
[2023-11-09] MEDS: DABIGATRAN ETEXILATE MESYLATE 150 MG PO SCH (22:00)
[2023-11-09 22:25] VITALS: PULSE 65; RESP 18; O2SAT 98
[2023-11-09] MEDS: DOXYCYCLINE 100 MG TAB/CAP PO SCH (22:42)
[2023-11-10] VITALS (7 sets, daily range): BP systolic 105–114; BP diastolic 63–77; PULSE 57–93; RESP 17–20; TEMP 97.8–98.5; O2SAT 94–97
[2023-11-10 05:48] LABS: Basophils # (auto) 0 10 ^3/uL (0-0.2); Basophils % (auto) 0.2 % (0.0-2.0); Eosinophils # (auto) 0 10 ^3/uL (0-0.8); Eosinophils % (auto) 0.4 % (0.0-7.0); Hematocrit 40.2 % (41.0-53.0); Hemoglobin 13.5 g/dL (13.5-17.5); Lymphocytes # (auto) 1.1 10 ^3/uL (0.4-5.4); Lymphocytes % (auto) 10.8 % (10.0-50.0); Mean Corpuscular Hemoglobin 31.6 pg (28.0-32.0); Mean Corpuscular Hgb Conc. 33.6 g/dL (32.0-36.0); Mean Corpuscular Volume 94.2 fL (80.0-100.0); Monocytes # (auto) 0.8 10 ^3/uL (0-1.3); Monocytes % (auto) 7.5 % (0.0-12.0); Neutrophils # (auto) 8.6 10 ^3/uL (1.6-8.6); Neutrophils % (auto) 81.1 % (37.0-80.0); Nucleated Red Blood Cells % 0.1 %; Red Blood Cells 4.27 10^6/uL (4.5-5.90); Red Cell Distribution Width 14.9 % (11.8-14.3); White Blood Cell 10.6 10^3/uL (4.4-10.8)
[2023-11-10 06:06] LABS: Albumin 3.1 g/dL (3.2-4.8); Alkaline Phosphatase 41 U/L (46-116); Anion Gap 5 (5-15); Aspartate Aminotransferase 18 U/L (13-40); BUN/Creatinine Ratio 9.7 (10.0-20.0); Blood Urea Nitrogen 12 mg/dL (9-23); Calcium 9.2 mg/dL (8.7-10.4); Carbon Dioxide 23 mmol/L (20-30); Chloride 111 mmol/L (98-107); Glucose 94 mg/dL (74-106); Potassium 4.2 mmol/L (3.5-5.1); Sodium 139 mmol/L (136-145)
[2023-11-10 06:08] LABS: Alanine Aminotransferase < 9 U/L (7-40)
[2023-11-10] MEDS: LEVOTHYROXINE SODIUM 25 MCG TAB PO SCH (06:15)
[2023-11-10] MEDS: cefTRIAXone 1GM/50ML D5W 50 ML IV SCH (09:46)
[2023-11-10] MEDS: PANTOPRAZOLE 40 MG TAB PO SCH (09:46)
[2023-11-10] MEDS: ENOXAPARIN SOD 40 MG/0.4 ML SYRINGE SC SCH (09:47)
[2023-11-10] MEDS: TAMSULOSIN HYDROCHLORIDE 0.4 MG CAP PO SCH (09:49)
[2023-11-10] MEDS: FERROUS SULFATE 325mg EC TAB PO SCH (09:49)
[2023-11-10] MEDS: FINASTERIDE 5 MG TAB PO SCH (09:49)
[2023-11-10] MEDS: DONEPEZIL HYDROCHLORIDE 5 MG TAB PO SCH (09:49)
[2023-11-10] MEDS: CHOLECALCIFEROL (VITD3) 1,000UNIT=25mCg TAB PO SCH (09:49)
[2023-11-10] MEDS ORDERED: amLODIPine BESYLATE 5 MG TAB PO SCH (10:00)
[2023-11-10 12:51] LABS: Triglycerides 49 mg/dL (< 150)
[2023-11-10 12:52] LABS: LDL Cholesterol 41 mg/dL (< 100)
[2023-11-10 12:53] LABS: Cholesterol 105 mg/dL (< 200); HDL Cholesterol 54 mg/dL (40-59)
[2023-11-10] MEDS: ASPirin 81 mg TAB PO ONE (15:49)
[2023-11-10] MEDS: APIXABAN 2.5 MG TAB PO SCH (21:17)
[2023-11-10] MEDS: MUPIROCIN 2% OINT 15gm or 22gm FOR MRSA NARES EACHNOSTRI SCH (21:17)
[2023-11-11] VITALS (7 sets, daily range): BP systolic 111–139; BP diastolic 69–86; PULSE 65–78; RESP 16–20; TEMP 97.7–98.7; O2SAT 95–98
[2023-11-11] MEDS: amLODIPine BESYLATE 5 MG TAB PO SCH (08:57)
[2023-11-11] MEDS ORDERED: ASPirin 81 mg TAB PO SCH (10:00)
[2023-11-12] VITALS (7 sets, daily range): BP systolic 122–144; BP diastolic 76–90; PULSE 65–66; RESP 18–20; TEMP 97.7–98; O2SAT 95–99
[2023-11-13 05:00] VITALS: BP 131/89; PULSE 65; RESP 18; TEMP 98; O2SAT 96
[2023-11-13 08:00] VITALS: BP 120/74; PULSE 65; PULSE 68; PULSE 72; RESP 18; TEMP 98.2; O2SAT 98
[2023-11-13 08:59] VITALS: BP 132/80; PULSE 64; RESP 17; TEMP 98.1; O2SAT 95
[2023-11-13] MEDS ORDERED: LEVO750T8 PO (10:28)
[2023-11-13] MEDS ORDERED: DOXY-346 PO (10:28)
[2023-11-13] MEDS ORDERED: APIX2.5T PO (10:37)
[2023-11-13] MEDS: levoFLOXacin 500MG 100 ML IV ONE (12:07)
[2023-11-13 13:03] VITALS: BP 128/89; PULSE 65; RESP 16; TEMP 98; O2SAT 98
[2023-11-14] MEDS ORDERED: levoFLOXacin 500MG 100 ML IV SCH (10:00)
[2023-11-14] MEDS ORDERED: levoFLOXacin 250MG 50 ML IV SCH (10:00)
== END 2023-11-13 14:30 | disposition home or self-care (01) | DRG 871 ==
LOC: EDBD 13:39 → EDUNIT# 13:39 → ER 13:39 → TELE 19:06 → TELE-EAST 21:27
PROVIDERS: ADMIT Nurse Practitioner Family; ATTEND Family Medicine
DX: A41.51 Sepsis due to Escherichia coli [E. coli] (principal); E43 Unspecified severe protein-calorie malnutrition; I21.A1 Myocardial infarction type 2; I50.31 Acute diastolic (congestive) heart failure; I48.92 Unspecified atrial flutter; N30.00 Acute cystitis without hematuria; I48.20 Chronic atrial fibrillation, unspecified; A41.81 Sepsis due to Enterococcus; A41.89 Other specified sepsis; E03.9 Hypothyroidism, unspecified; Z66 Do not resuscitate; B95.2 Enterococcus as the cause of diseases classified elsewhere; B96.89 Other specified bacterial agents as the cause of diseases classified elsewhere; I12.9 Hypertensive chronic kidney disease with stage 1 through stage 4 chronic kidney disease, or unspecified chronic kidney disease; F03.C0 Unspecified dementia, severe, without behavioral disturbance, psychotic disturbance, mood disturbance, and anxiety; I25.10 Atherosclerotic heart disease of native coronary artery without angina pectoris; N40.0 Benign prostatic hyperplasia without lower urinary tract symptoms; Z68.22 Body mass index [BMI] 22.0-22.9, adult; Z95.0 Presence of cardiac pacemaker; Z79.01 Long term (current) use of anticoagulants; Z82.49 Family history of ischemic heart disease and other diseases of the circulatory system
CPT/HCPCS: 36415; 70450; 71045; 80053; 80061; 81001; 82607; 83735; 84443; 84484; 85025; 87040; 87081; 87086; 87088; 87186; 93005; 93306; 93886; 97110; 97116; 97163; 97530; 99291; G0378; J1956

== ENCOUNTER 2024-01-01 09:24 | Emergency (ER) | payer OTHER, MEDICAID ==
[~2024-01-01] VITALS: Ht 193 cm; Wt 83.9 kg
[~2024-01-01 09:24] MED LIST changes: +APIX2.5T PO; -DABI150C5 PO; +DOXY-346 PO; +LEVO750T8 PO
[2024-01-01 20:30] LABS: Urine Bacteria FEW /hpf (None Seen); Urine Blood 3+ /uL (Negative); Urine Clarity Turbid (Clear); Urine Color Colorless (Yellow); Urine Mucus FEW (None Seen); Urine Protein, UAD 1+ (Negative); Urine Specific Gravity 1.009 (1.001-1.035); Urine Urobilinogen Normal (Negative); Urine WBC 167 /hpf (0 - 3)
[2024-01-01] MEDS ORDERED: CIPR-173 PO (20:55)
[2024-01-01 21:18] VITALS: BP 132/89; PULSE 65; RESP 24; O2SAT 95
== END 2024-01-01 21:31 | disposition home or self-care (01) ==
LOC: ER 09:24
DX: T83.038A Leakage of other urinary catheter, initial encounter (principal); I48.91 Unspecified atrial fibrillation; I12.9 Hypertensive chronic kidney disease with stage 1 through stage 4 chronic kidney disease, or unspecified chronic kidney disease; N18.9 Chronic kidney disease, unspecified; E07.9 Disorder of thyroid, unspecified; F03.90 Unspecified dementia, unspecified severity, without behavioral disturbance, psychotic disturbance, mood disturbance, and anxiety; Z95.0 Presence of cardiac pacemaker; Y92.89 Other specified places as the place of occurrence of the external cause
CPT/HCPCS: 51702; 81001